=== PATIENT | female | born 1995 | race African-American/Black ===

== ENCOUNTER 2018-02-23 11:23 | Emergency (ER) | payer MEDICAID ==
[~2018-02-23] VITALS: Ht 167.6 cm; Wt 63.6 kg
[2018-02-23 11:26] VITALS: Ht 167.6 cm; Wt 63.6 kg
[2018-02-23 12:13] LABS: BASOPHILS 0.3 % (0-2); EOSINOPHILS 8.4 % (0-7); HEMATOCRIT 35.7 % (36.0-48.0); HEMOGLOBIN 11.8 g/dL (12-16); LYMPHOCYTES 25.7 % (15-50); MCH 29.6 pg (26.0-34.0); MCHC 33.1 g/dL (31.0-37.0); MCV 89.5 fL (80.0-100.0); MONOCYTES 5.4 % (2-11); NEUTROPHILS 60.2 % (40-80); PLATELET COUNT 239 10x3/uL (130-400); RBC 3.99 10x6/uL (4.00-5.40); RDW 13.1 % (11.5-14.5); WBC 6.4 10x3/uL (4.8-10.8)
[2018-02-23 12:19] LABS: HCG SERUM POSITIVE (NEGATIVE)
[2018-02-23 12:25] LABS: APPEARANCE HAZY (CLEAR); COLOR YELLOW (YELLOW); SPECIFIC GRAVITY 1.005 (1.005-1.020)
[2018-02-23 12:26] LABS: ALBUMIN 3.6 g/dL (3.4-5.0); ALKALINE PHOSPHATASE 45 U/L (46-116); ALT (SGPT) 40 U/L (10-68); BILIRUBIN NEGATIVE (NEGATIVE); BILIRUBIN - TOTAL 0.31 mg/dL (0.2-1.3); CALC OSMOLALITY 265 mosm/kg (275-300); CALCIUM 8.7 mg/dL (8.5-10.1); CARBON DIOXIDE 26.6 mmol/L (21.0-32.0); CHLORIDE - SERUM 101 mmol/L (98-107); CREATININE - SERUM 0.7 mg/dL (0.6-1.3); GLUCOSE 81 mg/dL (74-106); GLUCOSE NEGATIVE (NEGATIVE); KETONE NEGATIVE (NEGATIVE); NITRITE NEGATIVE (NEGATIVE); POTASSIUM - SERUM 3.8 mmol/L (3.5-5.1); PROTEIN NEGATIVE (NEGATIVE); PROTEIN - SERUM 8.3 g/dL (6.4-8.2); SODIUM 134 mmol/L (136-145); UREA NITROGEN 10 mg/dL (7-18); UROBILINOGEN NORMAL (NORMAL); eGFR NON AFRICAN AMERICAN > 90 mL/min (90-120)
[2018-02-23 12:27] LABS: BACTERIA MODERATE /hpf (NONE SEEN); EPITHELIAL CELLS 0-5 /hpf (0-5); RED CELLS - URINE 0-5 /hpf (0-5); WHITE CELLS - URINE NSEEN /hpf (0-5)
[2018-02-23] MEDS ORDERED: MACROBID100 MG PO (15:04)
[2018-02-23] MEDS ORDERED: ZOFRAN ODT4 MG/UDTAB PO (15:04)
[2018-02-23] MEDS ORDERED: FLAGYL500 MG PO (15:04)
[2018-02-23 15:24] VITALS: BP 115/52
== END 2018-02-23 15:24 | disposition home or self-care (01) ==
LOC: D.ER 11:23
PROVIDERS: Family Medicine
DX: O20.9 Hemorrhage in early pregnancy, unspecified (principal); Z3A.10 10 weeks gestation of pregnancy; R10.2 Pelvic and perineal pain; O23.41 Unspecified infection of urinary tract in pregnancy, first trimester; N76.0 Acute vaginitis; B96.89 Other specified bacterial agents as the cause of diseases classified elsewhere

== ENCOUNTER → 2018-06-13 10:31 | Outpatient (CLI) | payer MEDICAID ==
[2018-02-23 11:26] VITALS: BMI 22.6
[~2018-06-13 10:31] MED LIST: FLAGYL500 MG PO; MACROBID100 MG PO; ZOFRAN ODT4 MG/UDTAB PO
[2018-06-13 12:32] LABS: APPEARANCE HAZY (CLEAR); BACTERIA MODERATE /hpf (NONE SEEN); BILIRUBIN NEGATIVE (NEGATIVE); COLOR YELLOW (YELLOW); EPITHELIAL CELLS 0-5 /hpf (0-5); GLUCOSE NEGATIVE (NEGATIVE); KETONE NEGATIVE (NEGATIVE); MUCUS <1+ /lpf (NONE SEEN); NITRITE NEGATIVE (NEGATIVE); PROTEIN NEGATIVE (NEGATIVE); SPECIFIC GRAVITY 1.005 (1.005-1.020); UROBILINOGEN NORMAL (NORMAL)
[2018-06-13 12:33] LABS: WHITE CELLS - URINE OCC /hpf (0-5)
[2018-06-13 13:47] LABS: BASOPHILS 0.1 % (0-2); EOSINOPHILS 4.6 % (0-7); HEMOGLOBIN 11.3 g/dL (12-16); IMMATURE GRANULOCYTES 0.3 % (0-5); LYMPHOCYTES 19.9 % (15-50); MCH 29.9 pg (26.0-34.0); MCHC 32.3 g/dL (31.0-37.0); MCV 92.6 fL (80.0-100.0); MEAN PLATELET VOLUME 12.2 fL (7.4-10.4); MONOCYTES 6.2 % (2-11); NEUTROPHILS 68.9 % (40-80); PLATELET COUNT 196 10x3/uL (130-400); RBC 3.78 10x6/uL (4.00-5.40); RDW 13.3 % (11.5-14.5); WBC 7.5 10x3/uL (4.8-10.8)
== END | disposition home or self-care (01) ==
LOC: D.LDO 10:31
PROVIDERS: ATTEND Obstetrics & Gynecology
DX: O26.899 Other specified pregnancy related conditions, unspecified trimester (principal); Z3A.00 Weeks of gestation of pregnancy not specified

== ENCOUNTER 2018-08-13 17:55 | Outpatient (CLI) | payer MEDICAID ==
[2018-02-23 11:26] VITALS: BMI 22.6
== END 2018-08-13 19:04 | disposition home or self-care (01) ==
LOC: D.LDO 17:55
PROVIDERS: ATTEND Obstetrics & Gynecology
DX: O26.899 Other specified pregnancy related conditions, unspecified trimester (principal); Z3A.00 Weeks of gestation of pregnancy not specified

== ENCOUNTER 2018-09-09 14:02 | Inpatient (IN) | payer MEDICAID ==
[~2018-09-09] VITALS: Ht 167.6 cm; Wt 84.1 kg
[2018-09-09 14:52] LABS: APPEARANCE CLEAR (CLEAR); BILIRUBIN NEGATIVE (NEGATIVE); COLOR YELLOW (YELLOW); GLUCOSE NEGATIVE (NEGATIVE); KETONE NEGATIVE (NEGATIVE); NITRITE NEGATIVE (NEGATIVE); PROTEIN NEGATIVE (NEGATIVE); UROBILINOGEN NORMAL (NORMAL)
[2018-09-09 14:54] LABS: BACTERIA MODERATE /hpf (NONE SEEN); EPITHELIAL CELLS 0-5 /hpf (0-5); RED CELLS - URINE 0-5 /hpf (0-5); WHITE CELLS - URINE 0-5 /hpf (0-5)
[2018-09-09 14:55] LABS: YEAST >1+ WITH HYPHAE /hpf (NONE SEEN)
[2018-09-09 18:13] VITALS: BP 131/69; Ht 167.6 cm; Wt 84.1 kg
[2018-09-09] MEDS ORDERED: ACETAMINOPHEN500 M1 PO (18:25)
[2018-09-09] MEDS ORDERED: PRENAVITE1 TAB PO (18:25)
[2018-09-09 18:49] LABS: HEMATOCRIT 34.9 % (36.0-48.0); HEMOGLOBIN 11.6 g/dL (12-16); MCH 30.4 pg (26.0-34.0); MCHC 33.2 g/dL (31.0-37.0); MCV 91.6 fL (80.0-100.0); MEAN PLATELET VOLUME 12.5 fL (7.4-10.4); PLATELET COUNT 193 10x3/uL (130-400); RBC 3.81 10x6/uL (4.00-5.40); RDW 12.9 % (11.5-14.5); WBC 6.2 10x3/uL (4.8-10.8)
[2018-09-09 19:03] LABS: FERN TEST NEGATIVE (NEGATIVE)
[2018-09-11 07:14] LABS: RAPID PLASMA REAGIN Non Reactive (Non Reactive)
--- NOTE | 2018-09-11 16:55 | NUR ---
PORTABLE XRAY TAKEN TO RULE OUT RETAINED FORIEGN BODY. DR. ADAMS REPORTS NO RADIOPAQUE BODY SEEN.
[2018-09-11 17:20] VITALS: BP 139/65
--- NOTE | 2018-09-11 17:20 | NUR ---
RECEIVED TO ROOM BY BED FROM RECOVERY. PT IS AWAKE AND ALERT, RATES PAIN AT 0/10 AND MOVES BOTH LEGS WIHOUT COMPLAINT. IV INFUSING PER ORDERS, MEIER CATH TO BEDSIDE DRAIN WITH 200ML CLEAR URINE NOTED. FUNDUS FIRM AT U/1 WITH MODERATE BLEEDING BUT NO CLOTS NOTED. BILAT SCD IN PLACE AND ON PUMP. FAMILY AT BEDSIDE.
--- NOTE | 2018-09-11 17:45 | NUR ---
FUNDUS FIRM AT U/1 WITH LIGHT TO MODERATE BLEEDING NOTED. PT ABLE TO RAISE HER BOTTOM FOR UNDERPAD TO BE CHANGED AND WHEN SHE DOES APPROX 3-4CM CLOT EXPEL SPONT. FUNDUS MASSAGE WITH NOTED TO BE FIRM AT U/1. TOWELS CHANGED AND SHE TILTS SELF TO LEFT SIDE. LARGE SPRITE PER REQUEST. CALL LIGHT IN REACH AND FAMILY AT BEDSIDE.
--- NOTE | 2018-09-11 18:30 | NUR ---
TOP CUTTER STARTED, PT RATES PAIN AT INCISION AND IN HER BACK AT 7/10. MORPHINE TOP CUTTER SET UP AND PT GIVEN 5MG LOADING DOSE AND STATES UNDERSTANDING TO TOP CUTTER BUTTON. FUNDUS FIRM AT U/U WITH SCANT BLEEDING NOTED. LARGE CUP OF ICE PER REQUEST. PT ALSO DEMONSTRATES UNDERSTANDING AND USE OF INCENTIVE SPIROMETER AT THIS TIME. SIDE RAIL UP X 2 WITH CALL LIGHT IN REACH.
[2018-09-11 19:18] VITALS: BP 137/78
[2018-09-11 19:33] VITALS: BP 137/81
--- NOTE | 2018-09-11 19:33 | NUR ---
SHIFT ASSESSMENT COMPLETED, SEE FLOWSHEET. FUNDUS FIRM, ML,U-1, BLEEDING SMALL. LOW TRANSVERSE INCISION COVERED WITH DRESSING. DRESSING REMAINS CLEAN, DRY AND INTACT. PT PROVIDED WITH SPRITE PER REQUEST. NO FURTHER NEEDS IDENTIFIED. BED LOCKED IN LOW POSITION, SIDERAILS UPX2, CALL NUR AND TRAY TABLE IN REACH AND PT ENCOURAGED TO CALL WITH ANY NEEDS.
[2018-09-11 20:28] VITALS: BP 125/73
[2018-09-11 21:28] VITALS: BP 136/90
--- NOTE | 2018-09-11 22:00 | NUR ---
PT SITTING UP IN BED HOLDING , DENIES NEEDS AT THIS TIME. SIGNIFICANT OTHER REMAINS AT BEDSIDE FOR SUPPORT. WILL CONTINUE TO MONITOR
[2018-09-11 23:10] VITALS: BP 136/79
--- NOTE | 2018-09-11 23:10 | NUR ---
PATIENT SITTING IN BED, PERICARE DONE AND PT REPOSITIONED TO LEFT SIDE. PILLOW PLACED BEHIND BACK FOR SUPPORT. MEIER CATHETER EMPTIED OF 175 ML CLEAR YELLOW URINE. BED REMAINS LOCKED IN LOW POSITION, SIDE RAILS UPX2, CALL NUR AND TRAY TABLE IN REACH. WILL CONTINUE TO MONITOR.
--- NOTE | 2018-09-12 02:31 | NUR ---
PT SITTING UP IN BED HOLDING . NEW BAG OF FLUIDS INFUSING PER ALARIS PUMP, SEE EMAR. PT DENIES NEEDS AT THIS TIME. WILL CONTINUE TO MONITOR
[2018-09-12 03:47] VITALS: BP 121/75
--- NOTE | 2018-09-12 03:47 | NUR ---
REPORTS THAT [employer] AND LATHE OPERATOR BUTTON IS NOT LIGHTING UP AND WHEN SHE HIT BUTTON IT DOES NOT SAY DELIVERING ON PUMP AND THE PUMP DOES NOT FLASH. PT TRIES TO USE BUTTON WITH RN AT BEDSIDE AND PUMP DOES NOT WORK. PUMP RESET AND BUTTON NOW WORKING. C/O PAIN 6/10, 5 MG BOLUS DOSE GIVNEN PER ORDER AT THIS TIME. I&0 DONE. VSS. SITTING IN HIGH FOWLERS POSITION BOTTLE FEEDING INFANT. WILL PERFORM PERICARE FOLLOWING FEEDING COMPLETION. BED IN LOW POSITION WITH UPPER SIDE RAILS RAISED X2. CALL LIGHT AND PHONE WITHIN REACH.
--- NOTE | 2018-09-12 04:08 | NUR ---
PAIN REASSESSMENT COMPLETED 03/17. INFANT BACK TO NBN PER PT REQUEST. DENIES ADDITIONAL NEEDS. WILL CONTINUE TO MONITOR.
--- NOTE | 2018-09-12 04:33 | NUR ---
cup of ice provided per pt request
--- NOTE | 2018-09-12 05:10 | NUR ---
SCHEDULED TORADOL GIVEN PER ORDER, C/O ABD SORENESS AND CRAMPING 05/15. CUSTOMER ACCOUNT COORDINATOR ALSO USED WITH RN AT BEDSIDE. PERICARE DONE PER RN. CHUX AND PERIPADS CHANGED. FUNDUS FIRM, MIDLINE AND U2 WITH SCANT RUBRA LOCHIA, NO CLOTS NOTED. ICE PACK PROVIDED. DENIES ADDITIONAL NEEDS AT THIS TIME. FOB RESTING ON COUCH AT BEDSIDE. BECOMES TEARFUL, STATES THAT SHE IS NOT TEARFUL R/T PAIN "I'M JUST SO HAPPY SHE'S HERE AND CAN'T BELIEVE I MADE HER." SCD'S ON BLE. BED IN LOW POSITION WITH UPPER SIDE RAILS RAISED X2. CALL LIGHT AND PHONE WITHIN REACH. WILL CONTINUE TO MONITOR AND ASSIST PRN.
--- NOTE | 2018-09-12 05:45 | NUR ---
RESTING QUIETLY IN SEMI-FOWLERS POSITION WITH EYES CLOSED. RESPIRATIONS REGULAR AND UNLABORED, NO S/S OF DISTRESS NOTED. SCD'S ON BLE. BED IN LOW POSITION WITH UPPER SIDE RAILS RAISED X2. CALL LIGHT AND PHONE WITHIN REACH.
[2018-09-12 06:21] LABS: BASOPHILS 0.1 % (0-2); EOSINOPHILS 2.5 % (0-7); HEMATOCRIT 28.6 % (36.0-48.0); HEMOGLOBIN 9.4 g/dL (12-16); IMMATURE GRANULOCYTES 0.1 % (0-5); LYMPHOCYTES 16.3 % (15-50); MCH 29.7 pg (26.0-34.0); MCHC 32.9 g/dL (31.0-37.0); MCV 90.5 fL (80.0-100.0); MONOCYTES 6.7 % (2-11); NEUTROPHILS 74.3 % (40-80); PLATELET COUNT 171 10x3/uL (130-400); RBC 3.16 10x6/uL (4.00-5.40); RDW 12.6 % (11.5-14.5); WBC 9.6 10x3/uL (4.8-10.8)
[2018-09-12 07:38] VITALS: BP 131/67
--- NOTE | 2018-09-12 07:38 | NUR ---
RECEIVED PT SITTING UP IN BED. AWAKE. VSS. HRRR WITHOUT AUDIBLE MURMUR. BBS CLEAR. BS X 4. ABDOMEN SOFT/NON-DISTENDED.PT STATES PASSING GAS. ABDOMINAL INCISION WITH DERMABOND. NO REDNESS, SWELLING OR DRAINAGE NOTED. FUNDUS FIRM AT U/2. RUBRA LOCHIA MOD AMT. NO CLOTS NOTED. PERIPADS CHANGED. NEG HOMANS' SIGN. PPP. NO EDEMA NOTED TO BLE. PIV CONVERTED TO SALINE LOCK. FLUSHES EASILY WITH 10 ML NS. SITE CLEAR. PT HANNA WELL.
--- NOTE | 2018-09-12 07:55 | NUR ---
PERCOCET 5/325 GIVEN PO ORDERED. PT INSTRUCTED ON MED. VERBALIZES UNDERSTANDING.
--- NOTE | 2018-09-12 08:55 | NUR ---
RENEA DC'D WITH 550 ML OF ORLIN COLORED URINE NOTED IN BAG. PT HANNA WELL. INSTRUCTED TO NOTIFY NURSE OF NEED TO VOID FOR ASSISTANCE TO BR.
--- NOTE | 2018-09-12 09:30 | NUR ---
PT OOB AND AMB TO BR TO VOID. VOIDS 50 ML OF BLOOD-TINGED URINE. PERICARE DONE PER PT. PAD AND PANTIES ON. GOWN CHANGED. BED LINENS CHANGED. PT AMBULATES BACK TO BED. HANNA ACTIVITY WELL.
--- NOTE | 2018-09-12 10:48 | NUR ---
PT SITTING UP IN BED. HOLDS WITH MUCH WARMTH SHOWN. DENIES C/O PAIN OR NEEDS.
--- NOTE | 2018-09-12 12:04 | NUR ---
PT SITTING UP IN BED. C/O ABDOMINAL PAIN OF"5" ON 0-10 PAIN SCALE. PERCOCET 5/325 AND MOTRIN 600 MG GIVEN PO ORDERED. PT INSTRUCTED ON MED. VERBALIZES UNDERSTANDING.
[2018-09-12 13:12] VITALS: BP 133/63
--- NOTE | 2018-09-12 13:15 | NUR ---
PT OOB AND AMB TO BR TO VOID. VOIDS 500 ML OF CLOUDY, YELLOW URINE. PERICARE DONE PER PT. PAD CHANGED WITH SCANT AMT OF RUBRA LOCHIA NOTED. PT AMB BACK TO BED. HANNA ACTIVITY WELL.
--- NOTE | 2018-09-12 14:13 | NUR ---
PT CALLS ON LIGHT. C/O FEELING HOT. THERMOSTAT TURNED DOWN. PT TEMP 98.2 ORALLY.
--- NOTE | 2018-09-12 15:28 | NUR ---
PT SITTING UP IN BED. CARING FOR INFANT WITH MUCH WARMTH SHOWN. PT DENIES C/O. STATES TOLERATED SHOWER WELL AND FEELS BETTER.
--- NOTE | 2018-09-12 16:45 | NUR ---
PT REQUESTS AND RECEIVES SPRITE. DENIES NEEDS OR C/O.
--- NOTE | 2018-09-12 17:16 | NUR ---
PT C/O ABDOMINAL/INCISIONAL PAIN OF "7" ON 0-10 PAIN SCALE. PERCOCET 5/325 GIVEN PO ORDERED.
--- NOTE | 2018-09-12 17:33 | NUR ---
PERCOCET 5/325 GIVEN PO ORDERED X 1 DOSE.
--- NOTE | 2018-09-12 18:34 | NUR ---
PT AMBULATORY IN HALLS. HANNA ACTIVITY WELL.
--- NOTE | 2018-09-12 19:51 | NUR ---
PT VISITING WITH FAMILY, DENIES NEEDS AT THIS TIME. WILL CONTINUE TO MONITOR.
--- NOTE | 2018-09-12 20:18 | NUR ---
IV D/C'D AT THIS TIME WITH CATHETER TIP INTACT. PRESSURE AND BANDAID APPLIED.
[2018-09-12 20:19] VITALS: BP 133/62
--- NOTE | 2018-09-12 20:19 | NUR ---
SHIFT ASSESSMENT COMPLETED AT THIS TIME, SEE FLOWSHEET.
--- NOTE | 2018-09-12 21:15 | NUR ---
PT AMBULATING IN ROOM, DENIES NEEDS AT THIS TIME. CONTINUES TO RATE HER PAIN AT 3/10 WHICH IS ACCEPTABLE TO HER. FAMILY REMAINS IN THE ROOM FOR SUPPORT. WILL CONTINUE TO MONITOR.
--- NOTE | 2018-09-12 21:32 | NUR ---
CALLED TO ROOM BY PATIENT, STATES THAT SHE IS HURTING AFTER WALKING. MOTRIN GIVEN PER PT REQUEST, SEE EMAR.
--- NOTE | 2018-09-12 22:17 | NUR ---
PATIENT RESTING QUIETLY WITH EYES OPEN, RATES HER PAIN 3/10 AT THIS TIME. DENIES NEEDS.
--- NOTE | 2018-09-12 23:37 | NUR ---
PATIENT WALKING AROUND THE ROOM, ADMINISTERED PERCOCET 10/325MG PO PER PT REQUEST FOR 7/10 PAIN. DENIES OTHER NEEDS, WILL CONTINUE TO MONITOR.
--- NOTE | 2018-09-13 01:02 | NUR ---
PT SITTING UP ON COUCH HOLDING INFANT, SIGNIFICANT OTHER REMAINS IN ROOM FOR SUPPORT. NO NEEDS IDENTIFIED, WILL CONTINUE TO MONITOR
--- NOTE | 2018-09-13 03:28 | NUR ---
PT IN BATHROOM, DENIES PAIN OR NEEDS. SIGNIFICANT OTHER AT BEDSIDE FOR SUPPORT, WILL CONTINUE TO MONITOR.
--- NOTE | 2018-09-13 05:17 | NUR ---
ADMINISTERED MOTRIN 600MG PO PER PT REQUEST, SEE EMAR.
[2018-09-13 07:35] VITALS: BP 128/70
--- NOTE | 2018-09-13 07:42 | NUR ---
assessment done. sitting up in bed eating breakfast. small lochia noted on pad. fundus uu. denies needs at this time.
--- NOTE | 2018-09-13 10:00 | NUR ---
AMBULATING IN ROOM DESIRED- NO REQUESTS.
--- NOTE | 2018-09-13 12:05 | NUR ---
REQUESTING PAIN MEDICATION- RATES PAIN A 6 OB SCALE OF 0-10. PAIN MED GIVEN REQUESTED. DR MORGAN HERE TO SEE PT.
--- NOTE | 2018-09-13 12:29 | NUR ---
DISCHARGE ORDERS RECEIVED FROM DR MORGAN.
--- NOTE | 2018-09-13 13:00 | NUR ---
UP TO SHOWER. TOLERATED WELL.
[2018-09-13] MEDS ORDERED: PERCOCET 5-3251 TAB PO (14:28)
--- NOTE | 2018-09-13 16:48 | NUR ---
UP AND ABOUT IN ROOM. STATES THAT SHE WILL GET READY FOR DISCHARGE AND WOULD LIKE PAPERS AFTER THAT. VS DONE.
[2018-09-13 16:49] VITALS: BP 135/63
--- NOTE | 2018-09-13 17:30 | NUR ---
PT RINGS AND STATES THAT SHE IS READY FOR DISCHARGE INSTRUCTIONS. SCRIPT FOR PERCOCET GIVEN. PT MED REC GIVEN ALONG WITH DRUG DATA INFO SHEETS. PFW POST INST AND POST OP INST GIVEN. AWHONN WARNING SIGNS SHEET GIVEN. SEE ALSO PT SIGNED DISCHARGE INST SHEET FOR OTHER SHEETS. PT HEALTH SUMMARY GIVEN. PT DENIES QUESTIONS.
--- NOTE | 2018-09-13 17:40 | NUR ---
DISCHARGED WITH INFANT. TO AUTO VIA W/C.
== END 2018-09-13 17:40 | disposition home or self-care (01) | DRG 787 ==
LOC: D.LDO 14:02 → D.LD 17:48
PROVIDERS: Student in an Organized Health Care Education/Training Program; ADMIT Obstetrics & Gynecology; ATTEND Obstetrics & Gynecology
PROC: 10907ZC Drainage of Amniotic Fluid, Therapeutic from Products of Conception, Via Natural or Artificial Opening (ICD-10-PCS; principal; 2018-09-09)
PROC: 10D00Z1 Extraction of Products of Conception, Low, Open Approach (ICD-10-PCS; 2018-09-11)
DX: O41.03X0 Oligohydramnios, third trimester, not applicable or unspecified (principal); O63.9 Long labor, unspecified; O75.89 Other specified complications of labor and delivery; O76 Abnormality in fetal heart rate and rhythm complicating labor and delivery; Z37.0 Single live birth; O69.81X0 Labor and delivery complicated by cord around neck, without compression, not applicable or unspecified

== ENCOUNTER 2019-02-21 04:40 | Emergency (ER) | payer MEDICAID ==
[~2019-02-21] VITALS: Ht 167.6 cm; Wt 68.2 kg
[~2019-02-21 04:40] MED LIST changes: +ACETAMINOPHEN500 M1 PO; +PERCOCET 5-3251 TAB PO; +PRENAVITE1 TAB PO
[2019-02-21 04:53] VITALS: Ht 167.6 cm; Wt 68.2 kg
[2019-02-21] MEDS ORDERED: AUGMENTIN 875-11 TAB PO (05:28)
[2019-02-21] MEDS ORDERED: HYDROCODON-ACE1 EAC7 PO (05:28)
[2019-02-21 06:09] VITALS: BP 127/69
== END 2019-02-21 06:09 | disposition home or self-care (01) ==
LOC: D.ER 04:40
DX: J32.9 Chronic sinusitis, unspecified (principal); J45.909 Unspecified asthma, uncomplicated